=== PATIENT | female | born 1990 | race Caucasian/White ===

== ENCOUNTER 2024-01-01 09:30 | Day surgery (SDC) | payer SELFPAY, OTHER ==
[2024-01-01] VITALS (8 sets, daily range): BP systolic 114–148; BP diastolic 71–95; PULSE 61–93; RESP 14–16; TEMP 36.1–36.9; O2SAT 99–100; BMI 20.6
--- NOTE | 2024-01-01 | GALL_PTH ---
PATIENT: ERICKA RODRÍGUEZ LOC: [facility] – [place] U#:[id number] AGE/SX: 33/F ROOM: RE01/01/[address]: Dr. Angelina Jurado MD : 1990 BED: DIS: 01/01/2024 SPEC #: [id number] RECD: 01/01/24 12:53 STATUS: AYO MACIASJeana #: [id number] MALKA: 01/01/24 00:[address]: Angelina Jurado DEPT: SURGICAL PATHOLOGY RECD BY: Brittaney Nash ENTERED: 01/01/24 13:11 SP TYPE: LUIGI DOTSON DR: Rosa Hartley, TRANSIT AUTHORITY POLICE OFFICER-C Tissues: Gallbladder, NOS Procedures: Surgery Specimen Level III HEADER OPERATION: Laparoscopic, cholecystectomy with IOC, umbilical hernia repair PRE-OP DIAGNOSIS: Right upper quadrant, gallbladder sludge, umbilical hernia TISSUE SUBMITTED: Gallbladder and contents MICROSCOPIC DIAGNOSIS Gallbladder and contents, cholecystectomy: Mild chronic cholecystitis. See comment. ROYCE/ 01/04/2024 COMMENT No stones are identified in the container or in the gallbladder. MICROSCOPIC DESCRIPTION Slides are reviewed. GROSS DESCRIPTION Received is one container labeled with the patient's name and designated gallbladder. The specimen consists of a gallbladder measuring 7.0 cm in length and up to 3.5 cm in diameter. The external surface is pink-rodarte, smooth and glistening for the most part. Focally it is granular, hemorrhagic and contains cautery artifact. The gallbladder contains green-yellow mucoid bile. No stones are identified in the container or in the gallbladder. The mucosa is bile-stained and without any mass lesions. The gallbladder wall measures up to 0.1 cm in thickness. Science Interpreter sections from the gallbladder and the cystic duct are submitted in one cassette. / ROYCE: 01/01/2024 TC:3 CPT: 33088
--- NOTE | 2024-01-01 10:00 | RAD_ITS ---
CLINICAL HISTORY: Female, 33 years old. Abdominal pain PROCEDURE: CHOLANGIOGRAM - intraoperative FLUOROSCOPY TIME (if supplied): (0:11) minutes/seconds TECHNIQUE: (All elements of maximal sterile barrier technique followed, including US elements as applicable) 11 seconds of fluoroscopy of the abdomen was utilized during a run from an intraoperative cholangiogram and is submitted for interpretation. FINDINGS: A cannula is seen in the cystic duct remnant. There is a low cystic duct insertion near the ampulla. There is spillage of contrast through the ampulla into the duodenum. EXAMINATION: Bile duct demonstrates no evidence of filling defect to suggest common bile duct stone. RAD/Cholangiogram/ O R,Initial IMPRESSION: 1. No common bile duct stone. 2. Low insertion of the cystic duct. Electronically Signed: Mason Bailey MD at 13:05 EDT ,
[2024-01-01 10:01] LABS: Internal QC Validated? YES +Cl - CLEAR BKGD; Pregnancy, Urine Negative Negative; Record Kit Lot#,Urine Preg 772476
[2024-01-01] MEDS: Lactated Ringers 1,000 ML 15 ML IV (10:14)
--- NOTE | 2024-01-01 10:28 | PCM.PRE.AN2 ---
ASA Classification* ASA Classification ASA Classification: 2 Assessment & Plan Anesthesia* Anesthesia Assessment Anesthesia Assessment: Discussed sedation and/or anesthesia options, risks, benefits, and alternatives with patient/parents/legal guardian/POA. Questions invited. The patient/parents/legal guardian/POA seems to understand and agrees to proceed with anesthesia plan. Reviewed the physical assessment, medical history, allergy history and patient home medications list prior to surgery/procedure/anesthetic and documented any changes. Performed airway and anesthesia risk assessments. 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 When Was Last Pacemaker Check QUESTION #4 FULL TEXT: You/Your Family Experience fever (hyperthermia) with Anesthesia Last Oral Intake Last Oral intake: Last Oral Intake NPO since 19:30 01/01/24 09:57 Meds taken in AM with sips of Yes 01/01/24 09:57 water? Meds patient instructed to 0730 PRILOSEC 01/01/24 09:57 take am of surgery PONV PONV - environmental science instructor: PONV - environmental science instructor Female Yes 12/25/23 13:25 HX of Motion Sickness No 12/25/23 13:25 HX of N/V After Surgery Yes 12/25/23 13:25 Non-Smoker Yes 12/25/23 13:25 Duration of Surgery greater Yes 12/25/23 13:25 than 60 minutes Number of Risk Factors 4 12/25/23 13:25 PONV Score Severe Risk 12/25/23 13:25 Height & Weight Height & Weight: Anesthesia: Height & Weight Height 5 ft 01/01/24 09:57 Weight: 48 kg 01/01/24 09:57 Body Mass Index (BMI) 20.6 01/01/24 09:57 Respiratory Assessment Respiratory Assessment - environmental science instructor: Respiratory Tract Infection Hx - environmental science instructor Hx Respiratory Tract Infection No 12/25/23 13:25 STOP Sleep Apnea STOP Sleep Apnea - environmental science instructor: STOP Sleep Apnea - environmental science instructor Hx Hypertension No 12/25/23 13:25 Hx Sleep Apnea No 12/25/23 13:25 CPAP BIPAP Do you snore loudly (louder No 12/25/23 13:25 than talking or can be heard Do you often feel tired/ No 12/25/23 13:25 fatigued/ sleepy during daytime? Has anyone observed you stop No 12/25/23 13:25 breathing during sleep? STOP Results Negative 12/25/23 13:25 QUESTION #5 FULL TEXT : Do you snore loudly (louder than talking or can be heard through closed doors)? Tobacco Use History Tobacco Use History - environmental science instructor: Tobacco Use History - environmental science instructor Tobacco Use Smoking Status Never smoker 12/25/23 13:25 Hx Tobacco Use No 12/25/23 13:25 Years Smoking Packs Smoked per Day Smoking Cessation Date was within the last 15 years Hx Smoking Cessation Date Hx Smoking Cessation Counseling Hematologic Medial History Hematologic Hx - environmental science instructor: Hematologic Medical Hx - winding operator Hx of Blood Transfusion No 12/25/23 13:25 Hx of Transfusion in last 3 No 12/25/23 13:25 Months Date of Last Transfusion (if within last 3 months) Ever experience any problems No 12/25/23 13:25 with transfusion(s)? Specify any problems Hx of Preganancy in last 3 No 12/25/23 13:25 Months Nurse Filling Out Transfusion [facility] 12/25/23 13:25 & Questions: Date: 12/25/23 12/25/23 13:25 Time: 13:32 12/25/23 13:25 Patient unable to answer at this time (ie. confused, unrespo /Reproduction History /Reproductive History - environmental science instructor: /Reproductive Hx- environmental science instructor Hx Now Gestational Age (in weeks): EDC: Hx Hx Para Hx Section SAB Active Medications Active Medications: Current Medications Generic Name Dose Route Start Last Admin Trade Name Freq PRN Reason Stop Dose Admin Cefazolin Sodium 2 gm/ Sodium 110 mls @ 150 mls/hr 01/01/24 11:00 Chloride IV 01/01/24 11:43 PREOP ONE Lactated Ringer's 1,000 mls @ 15 mls/hr 01/01/24 09:45 01/01/24 10:14 IV 15 mls/hr .Q48H NOMAN Administration PFSH Medical History Wears glasses Thyroid disease Gastric reflux Non-smoker Acid reflux RUQ pain Home Medications ?Medication ?Instructions ?Recorded ?Last Taken ?Type THYROID SUPPLEMENT 2 cap PO DAILY 12/25/23 Unknown History omeprazole 40 mg capsule,delayed 40 mg PO DAILY 12/25/23 Unknown History release Allergy/AdvReac Type Severity Reaction Status Date / Time No Known Allergies Allergy Verified 12/25/23 13:22 Surgical History S/P section Social History Smoking Status: Never smoker alcohol intake: never Review of Systems (Anesthesia) ROS Narrative System reviewed and no additional complaints, except as documented.
--- NOTE | 2024-01-01 10:34 | HP.PCM_ITS ---
History and Physical Date of Admission: 01/01/24 Date of Service: 12/21/23 MR#: [id number] Acct: [id number] Name: ERICKA RODRÍGUEZ Rep #: [id number] : 1990 Provider: Dr. Angelina Jurado MD Age/Sex: 33/F Location: [facility] Status: Signed Intake Vital Signs 12/20/2412:16 Height 5 ft Weight: 107 lb BMI 20.9 Respiration 18 Intake Visit Reasons: ABDOMINAL PAIN Chief Complaint: abd pain Seedling Sorter Required: No Is patient in pain?: Yes (ruq abd) Pain scale (1-10): 4 Allergies No Known Allergies Allergy (Unverified 12/21/23 13:18) Medications ?Medication ?Instructions ?Recorded ?Confirmed ?Type thyroid 30 mg tablet mg PO 12/21/23 12/21/23 History Have you fallen in the past year?: No PFSH Medical History (Updated 12/22/23 @ 09:[address] Angelina Jurado MD) Acid reflux RUQ pain Surgical History (Updated 12/21/23 @ 13:20 by Renata Sanders) S/P section Social History (Updated 12/21/23 @ 13:20 by Renata Sanders) Smoking Status: Never smoker alcohol intake: never HPI HPI HPI: 33-year-old female presents due to right upper quadrant pain worse after eating fatty foods. Patient does admit to having some reflux upper esophagus as well. Patient states that she currently has right upper quadrant pain all day has gotten worse states been dealing with this for about 3 years. Patient states for her reflux she drinks kombucha and that improves it?patient is not on any antiacid's. Patient states she can gets some right upper quadrant pain before meals but typically about an hour after eating meals. Patient had an ultrasound which shows some debris in the gallbladder normal wall, previous CAT scan was read as normal patient did have a slight elevation of her AST and ALT when she went to the ER on November 29. Patient did get 5 days of Keflex from the ER. ROS General General: Yes weight change; No appetite, fatigue, colon cancer, breast cancer or weakness HEENT HEENT: Yes swollen glands; No difficulty swallowing, eye injury, eye surgery or hoarseness Endo Endocrine: No thyroid disease, diabetes mellitus, thyroid cancer, Hair loss, heat intolerance or cold intolerance Skin Skin: Yes rash; No changing moles Breast Breast: No left breast lump, right breast lump, nipple discharge, breast pain, abnormal mammogram, abnormal US or breast enlargement Musc Musculoskeletal: Yes back problems; No arthritis, rheumatoid arthritis, gout or joint pain Cardio Cardiovascular: No murmur, pacemaker, heart disease, atrial fibrillation, high blood pressure, heart attack, heart stent, palpitations, shortness of breat with exertion or chest pain Psych Psychiatric: No depression, anxiety or hearing voices Resp Respiratory: No shortness of breath, No sleep apnea, No cough, No COPD, No asthma, No emphysema and No wheezing Gastro Gastrointestinal: Yes abdominal pain, Yes nausea or vomiting, Yes diarrhea, No constipation, No blood in stool, Yes acid reflux, Yes hemorrhoids, No ulcers, Yes gallbladder problem and No black,tarry stools Aleksey Hematologic: No blood thinners, No blood disorders, No bleeding, No anemia and No blood clots Neuro Neurologic: No system reviewed and no additional complaints, except as documented, No as per HPI, No abnormal gait, No abnormal hearing, No abnormal movements, No abnormal speech, No behavioral changes, No burning sensations, No confusion, No convulsions, No disequilibrium, No dizziness, No localized weakness, No frequent falls, No headache(s), No lack of coordination, No loss of vision, No memory loss, No numbness, No other visual disturbances, No radicular pain, No restless legs, No sensory deficit, No syncope, No tingling, No tremor(s), No weakness and No other Exam Const General: cooperative, healthy appearing, comfortable and no acute distress [facility] Head: normocephalic and atraumatic Neck Neck: supple Resp Effort & Inspection: normal respiratory effort Cardio Rate: regular rate GI Inspection: non-distended Palpation: soft, hernia (Umbilical reducible) and tender in the RUQ (mild); with no rebound tenderness Skin General: no rashes or lesions noted Neuro General: CN's II-XI intact bilaterally Extrem General: normal to inspection Psych Mental Status: mental status grossly normal Attitude: cooperative Assessment and Plan Assessment and Plan (1) RUQ pain: Status: Acute (2) Gallbladder sludge: Status: Acute (3) Acid reflux: Status: Acute (4) Umbilical hernia without obstruction and without gangrene: Status: Acute Plan Will have patient take omeprazole 40 mg p.o. daily [id number] in the perioperative time. Patient is agreeable with plan. Reviewed the anatomy with the patient and discussed the procedure: laparoscopic cholecystectomy with possible cholangiograms, possible open. Review risks including but not limited to bleeding, infection, hernia, bile leak, retained gallstones requiring another procedure ERCP- Endoscopic Retrograde Cholangiopancreatography, injury to another organ (bile ducts, common bile duct, small bowel, etc.) and conversion to an open procedure. All questions were answered. Discussed with patient that we could also use the umbilical hernia as the trocar site and sutured closed. Discussed that this could recur if she does become in the future. Angelina Jurado M.D. Pager: [phone] [facility] [address] [place] [address], [address] [place] [address] Office: [phone] Coding Level of Care Code Off vis,new,level 3 Diagnoses RUQ pain R10.11 Gallbladder sludge K82.8 Acid reflux K21.9 Umbilical hernia without obstruction and without gangrene K42.9 Clinical Quality Measures Falls Risk Screening/Assistive Devices Have you fallen in the past year?: No 12/22/23 0932 <Electronically signed by Angelina Jurado MD> Date Angelina Jurado MD
--- NOTE | 2024-01-01 10:39 | EKG12_ITS ---
Test Reason : PRE OP Blood Pressure : / mmHG Vent. Rate : 064 BPM Atrial Rate : 064 BPM P-R Int : 158 ms QRS Dur : 078 ms QT Int : 400 ms P-R-T Axes : 043 052 019 degrees QTc Int : 412 ms Normal sinus rhythm Normal ECG No previous ECGs available Confirmed by GELY ARCOS, LEN ([id number]), publication editor CLEO DE OLIVEIRA ([id number]) on 01/07/2024 10:43:06 A M Referred By: Angelina Jurado Confirmed By:JOY HONG MD
[2024-01-01 10:58] LABS: Thyroid Stim Hormone (TSH) 1.68 uIU/mL (0.358-3.74)
[2024-01-01] MEDS: Cefazolin 2 GM in 0.9% Normal Saline (100mL Bag) 100 ML IV (10:58)
[2024-01-01] MEDS: Bupivacaine Mpf 0.5% 30 ML VIAL (12:13)
--- NOTE | 2024-01-01 12:21 | PCM.OPRPT ---
Report of Operation Date of Procedure: 01/01/24 Pre-Operative Diagnosis: Gallbladder sludge, right upper quadrant pain, umbilical hernia Post-Operative Diagnosis: Same Surgery/Procedure Performed:: Laparoscopic cholecystectomy with cholangiograms, umbilical hernia repair Surgeon: Angelina Jurado information developer: Robert Paniagua Type of Anesthesia: General/Supplemental Anesthesiologist: Jose Antonio Albert Special Medications: ancef 2 gram IV x1 Specimen's removed: gallbladder Estimated Blood Loss (mL): < 10 Description of Procedure: Indications: this is a 33 year-old female who developed abdominal pain/nausea/vomiting and on workup was found to have gallbladder sludge, with a normal common bile duct. Laparoscopic cholecystectomy was elected. Description procedure: The patient was placed on operating table in supine position. A timeout was completed verifying correct patient, procedure, site, position and special equipment prior to beginning procedure. General Anesthesia was induced. The abdomen was prepped and draped in usual sterile fashion. An incision was made in the natural skin line below the umbilicus. The previous umbilical hernia was used for trocar placement. The peritoneum was elevated and incised. Entry into the peritoneum was confirmed visually and no bowel was noted in the vicinity of the incision. Francois trocar was placed. The abdomen was insufflated with carbon dioxide to a pressure of 12-15 mmHg. Patient tolerated insufflation well. The laparoscope was then inserted and abdomen inspected. No injuries from initial trocar placement were noted. Additional trochars were then inserted in the following locations 5 mm trocar in the epigastrium and 2 more 5 mm trochars along the right costal margin. The abdomen was inspected no abnormalities were found. The table is placed in reverse Trendelenburg position with the right side up. The adhesions between the gallbladder and omentum were lysed sharply The dome of the gallbladder was grasped with atraumatic grasper passed through the lateral port and retracted over the dome of the liver. Infundibulum was then grasped with atraumatic grasper through the midclavicular port and retracted to the right lower quadrant. This maneuver exposed Calot's triangle. The peritoneum overlying the gallbladder infundibulum was then incised and cystic duct and artery identified and circumferentially dissected. Russell catheter was used for cholangiograms. The cholangiogram showed good filling of the common bile duct into the duodenum with no filling defects, good filling of the right and left bile ducts as well. The cystic duct and artery were then doubly clipped and divided close to the gallbladder. The gallbladder then dissected from its peritoneal attachments by electrocautery. Hemostasis was checked and the gallbladder and contained stones were removed using the endoscopic retrieval bag through the umbilical port. The gallbladder is passed off table as specimen. The gallbladder fossa was irrigated with saline and hemostasis obtained. There is no evidence of bleeding from the gallbladder fossa or cystic artery leakage of bile from the cystic duct stump. Secondary trochars removed under direct vision. No bleeding was noted the trocar sites. The laparoscope was withdrawn and umbilical trocar removed. The abdomen was allowed to collapse. The fascia of the 12 mm trocar was closed with a [id number] 0 Nurolon suture and the skin of the bellybutton was tacked to the fascia interrupted 3-0 Vicryl suture. The skin was closed with sutures of 4-0 Monocryl and Steri-Strips. The patient was extubated. The patient tolerated procedure well and was taken to the postanesthesia care unit in stable condition. Complications none
--- NOTE | 2024-01-01 12:24 | DCINST_ITS ---
Discharge Instructions Diet Discharge Diet: Light diet - advance as tolerated Activity Discharge Activity: May Not Drive (while taking narcotic pain medications.) May shower in (days): 1 Lifting Restrictions: no lifting >20 lbs x 2 wks, no strenuous exercise for 4 wks Dressing / Incision Call your doctor if your incision/area has: Continuous Slow Oozing, Sudden Increased Bleeding, Increased Pain/ Swelling, Increased Redness, Foul Smelling Discharge and Swelling at the incision site Call your doctor if you observe: Fever of 101 or Higher Remove Dressing in: 2 days Cleanse incision/area with: Soap & Water Additional Dressing/Incision Instructions:: Steri-Strips will fall off in 7 to 10 days, if they do not fall off okay to remove after 10 days. Follow Up Care Please Follow Up With: Angelina Jurado MD When: Call the office for a follow-up appointment 2 weeks; after 5 PM and on the weekends call [phone] with any concerns. Test Results: Test results from this visit will be discussed in further detail at your follow- up appointment, if applicable. Discharge Plan Admission Attending Provider: Angelina Jurado Primary Care Provider: Rosa Hartley Instructions Print Language: [place] Discharge Orders/Prescriptions Prescriptions: New tramadol 50 mg tablet 50 mg PO Q6H PRN (Reason: pain) 3 Days Qty: 10 0RF Continued THYROID SUPPLEMENT 2 cap PO DAILY omeprazole 40 mg capsule,delayed release(DR/EC) 40 mg PO DAILY Other Ambulatory Orders: 12 Lead EKG (Routine) Timeframe: [id number] Location: None Selected Ordered By: Dr. Mgiuel Blue Referrals / Follow Up: Rosa Hartley NP-C [Primary Care Provider] - Disposition Disposition (needs filled in before D/C Order can be placed): Home, Self Care
--- NOTE | 2024-01-01 12:33 | PCM.POST.ANE ---
Anesthesia: Postop Eval I Current Vital Signs Temperature: 97 F Pulse Rate: 63 Blood Pressure: 142/87 Respiratory Rate: 14 Pulse Ox: 100 Oxygen Delivery Method: Room Air Assessment Airway patent: Yes Spontaneous unlabored respirations: Yes Mental status: Awake and Calm nausea: No Vomiting: No Anesthesia Complication: No Fluid Hydration Crystalloid volume administer (ml): 1,200 Total IV fluid infused: 1,200 Progress Note Anesthesia document: Postop Eval 1 completed: Yes
--- NOTE | 2024-01-01 12:37 | POSTOPAN2_ITS ---
Anesthesia Postop Eval I Sum Postop Eval Completion status Anesthesia document: Postop Eval 1 completed: Yes Anesthesia Postop Eval I Summary Anesthesia Postop Eval I Summary: Anesthesia Postop Eval I: Assessment Summary Airway patent Yes 01/01/24 12:34 [email or web address] Spontaneous unlabored Yes 01/01/24 12:34 [email or web address] [email or web address] respirations Mental status Awake,Calm 01/01/24 12:34 [email or web address] [email or web address] nausea No 01/01/24 12:34 [email or web address] Vomiting No 01/01/24 12:34 [email or web address] Anesthesia Postop Eval I: Fluid Summary Crystalloid volume administer 1,200 01/01/24 12:34 [email or web address] [email or web address] (ml) Colloids volume administered ( ml) Blood Product volume administered (ml) Total IV fluid infused 1,200 01/01/24 12:34 [email or web address] Anesthesia Postop Eval I: Summary Notes Anesthesia Complication No 01/01/24 12:34 [email or web address] Anesthesia Complication Comment: Post-operative progress note Anesthesia: Postop Eval II Evaluation Mental status: Awake Pain Level: 0 nausea: No Vomiting: No
--- NOTE | 2024-01-01 12:37 | PCM.POSTANE2 ---
Anesthesia Postop Eval I Sum Postop Eval Completion status Anesthesia document: Postop Eval 1 completed: Yes Anesthesia Postop Eval I Summary Anesthesia Postop Eval I Summary: Anesthesia Postop Eval I: Assessment Summary Airway patent Yes 01/01/24 12:34 [email or web address] Spontaneous unlabored Yes 01/01/24 12:34 [email or web address] respirations Mental status Awake,Calm 01/01/24 12:34 [email or web address] nausea No 01/01/24 12:34 [email or web address] Vomiting No 01/01/24 12:34 [email or web address] Anesthesia Postop Eval I: Fluid Summary Crystalloid volume administer 1,200 01/01/24 12:34 [email or web address] (ml) Colloids volume administered ( ml) Blood Product volume administered (ml) Total IV fluid infused 1,200 01/01/24 12:34 [email or web address] Anesthesia Postop Eval I: Summary Notes Anesthesia Complication No 01/01/24 12:34 [email or web address] Anesthesia Complication Comment: Post-operative progress note Anesthesia: Postop Eval II Evaluation Mental status: Awake Pain Level: 0 nausea: No Vomiting: No
[2024-01-01] MEDS: traMADol 50 MG Tablet PO (14:01)
== END 2024-01-01 15:16 | disposition home or self-care (01) ==
LOC: SDC 09:35 → AC 09:37
PROVIDERS: Anesthesiology; PCP Nurse Practitioner Family; Referring Provider Surgery; Visit Provider Surgery
PROC: (CPT 47610; principal; 2024-01-01 10:40)
DX: K81.1 Chronic cholecystitis (principal); K42.9 Umbilical hernia without obstruction or gangrene; K21.9 Gastro-esophageal reflux disease without esophagitis; K82.8 Other specified diseases of gallbladder; Z79.899 Other long term (current) drug therapy; Z79.890 Hormone replacement therapy; E07.9 Disorder of thyroid, unspecified
CPT/HCPCS: 47563; 00790; 74300; 76000; 81025; 84443; 88304; 93005; J2405